=== PATIENT | female | born 1985 | race Caucasian/White ===

== ENCOUNTER 2022-07-23 17:08 | Emergency (ER) | payer OTHER ==
[~2022-07-23] VITALS: Ht 160 cm; Wt 97.5 kg
[2022-07-23] MEDS ORDERED: OMEPRAZOLE20 MG PO (17:33)
[2022-07-23] MEDS ORDERED: AMOX TR-K CLV1 EAC1 PO (19:26)
[2022-07-23 19:55] VITALS: BP 143/87
== END 2022-07-23 19:55 | disposition home or self-care (01) ==
LOC: ED 17:08
DX: K21.9 Gastro-esophageal reflux disease without esophagitis (principal); K52.9 Noninfective gastroenteritis and colitis, unspecified; Z79.899 Other long term (current) drug therapy
CPT/HCPCS: 36415; 74177; 80053; 81001; 83690; 84703; 85025; 99284-25; A9270; J1885; Q9967